=== PATIENT | female | born 1960 | race Caucasian/White ===

== ENCOUNTER 2017-04-09 22:49 | Emergency (ER) | payer OTHER, MEDICAID ==
[2017-04-09 23:11] VITALS: BMI 29.8
--- NOTE | 2017-04-09 23:40 | DR.GENAD ---
HPI - Complaint/Symptoms Chief Complaint:: PT C/O OF BAD CHEST CONGESTION,VOMITING,PASSED OUT TRYING TO EAT, AND HEADACHE. Self Treatment fo Chief Complaint: ZOFRAN 4MG, ALKASELTER - Source History Provided: Patient - Mode of Arrival Mode of Arrival: Wheelchair - Timing Onset of Chief Complaint: 03/26/17 PMH - PMH Past Medical History: Yes Past Medical History: Anxiety, Depression, Hypertension Past Medical History Comment: TACYCARIDA, PANIC ATTACK, FIBRAMYARIA Past Surgical History: Yes Surgical History: Hysterectomy Past Surgical History Comment: SKIN REMOVED - Family History History of Family Medical Conditions: Yes Family Medical History: Cancer, [place], Heart Failure, Hypertension - Social History Does patient currently use any type of tobacco product: Yes Have you used tobacco products in the last 12 months: Yes Type of Tobacco Use: Cigarettes How many years tobacco product used: 30 Does any household member use tobacco: No Alcohol Use: Occasionally Do you use any recreational Drugs:: No Lives With: Family Lives Where: Home - infectious screening In the last 2 months have you had wt loss of >10#?: NO Have you had fever, night sweats or hemotysis?: No Have you traveled outside the country in the last 6 months?: No Isolation: Standard ROS - Review of Systems Eyes: No Symptoms Reported ENTM: No Symptoms Reported Respiratoy: No Symptoms Reported Cardiovascular: No Symptoms Reported Gastrointestinal/Abdominal: No Symptoms Reported Genitourinary: No Symptoms Reported Neurological: No Symptoms Reported Musculoskeletal: No Symptoms Reported Integumentary: No Symptoms Reported Hematologic/Lymphatic: No Symptoms Reported Endocrine: No Symptoms Reported Psychiatric: No Symptoms Reported All Other Systems: Reviewed and Negative PE - Vital Signs Vitals: Temperature 97.5 F Pulse Rate 80 Respiratory Rate 18 Blood Pressure [Right Arm] 115/67 Blood Pressure 120/67 O2 Sat by Pulse Oximetry 97 - General Limitations: No Limitations General Appearance: Alert, In No Apparent Distress - Head Head Exam: Normal Inspection, Atraumatic - Eyes Eye exam: Normal Appearance, PERRL, EOMI - ENT ENT Exam: Normal Exam External Ear Exam: Normal External Inspection TM/Canal Exam: Bilateral Normal Nose Exam: Normal Nose Exam Mouth Exam: Normal Inspection Throat Exam: Normal Inspection - Neck Neck Exam: Normal Inspection, Full ROM - Chest Chest Inspection: Normal Inspection - Respiratory Respiratory Exam: Normal Lung Sounds Bilat Respiratory Exam: Bilateral Clear to Auscultation - Cardiovascular Cardiovascular Exam: Regular Rate, Normal Rhythm - Abdominal Exam Abdominal Exam: Normal Inspection, Normal Bowel Sounds Abdominal Tenderness: negative: RUQ, RLQ, LUQ, LLQ, Epigastrium, Suprapubic, Diffuse, Mild, Moderate, Severe, Other - Extremities Extremities Exam: Normal Inspection, Full ROM, Normal Capillary Refill - Back Back Exam: Normal Inspection, Full ROM - Neurologic Neurological Exam: Alert, Oriented X3, CN II-XII Intact - Psychiatric Psychiatric Exam: Normal Affect, Normal Mood - Skin Skin Exam: Warm, Dry, Intact Course - Education/Counseling Educated On: Treatment, Diagnosis, Prognosis ROR - Labs Reviewed Result Diagrams: 04/09/17 23:50 04/09/17 23:50 Laboratory: WBC 10.0 X10^3/uL (3.6-10.0) 04/09/17 23:50 RBC 4.68 X10^6/uL (3.5-5.4) 04/09/17 23:50 Hgb 13.7 g/dL (12.0-16.0) 04/09/17 23:50 Hct 40.9 % (36.0-47.0) 04/09/17 23:50 MCV 87.4 fL (80.0-100.0) 04/09/17 23:50 MCH 29.3 pg (27.0-34.0) 04/09/17 23:50 MCHC 33.5 g/dL (33.0-35.0) 04/09/17 23:50 RDW 14.4 % (11.6-16.5) 04/09/17 23:50 Plt Count 264 X10^3/uL (150.0-450.0) 04/09/17 23:50 MPV 9.5 fL (7.4-11.0) 04/09/17 23:50 Neut % 58.4 % (42.0-75.0) 04/09/17 23:50 Lymph % 27.1 % (21.0-51.0) 04/09/17 23:50 [place] % 10.2 % (0.0-13.0) 04/09/17 23:50 Eos % 3.3 % (0.9-2.9) H 04/09/17 23:50 Baso % 1.0 % (0.2-1.0) 04/09/17 23:50 Neut # 5.9 x10^3/uL (2.2-4.8) H 04/09/17 23:50 Lymph # 2.7 X10^3/uL (1.3-2.9) 04/09/17 23:50 [place] # 1.0 x10^3/uL (0.3-0.8) H 04/09/17 23:50 Eos # 0.3 x10^3/uL (0.0-0.2) H 04/09/17 23:50 Baso # 0.1 X10^3/uL (0.0-0.1) 04/09/17 23:50 Absolute Nucleated RBC 0.0 /100WBC 04/09/17 23:50 Sodium 137 mmol/L (136-145) 04/09/17 23:50 Corrected Sodium 138 mmol/L (136-145) 04/09/17 23:50 Potassium 3.4 mmol/L (3.5-5.1) L 04/09/17 23:50 Chloride 96 mmol/L (98-107) L 04/09/17 23:50 Carbon Dioxide 34.0 mmol/L (21-32) H 04/09/17 23:50 BUN 10 mg/dL (7-18) 04/09/17 23:50 Creatinine 1.16 mg/dL (0.55-1.02) H 04/09/17 23:50 Est GFR (MDRD) Af Amer > 60 (>60) 04/09/17 23:50 Est GFR (MDRD) Non-Af 51 (>60) L 04/09/17 23:50 Glucose 121 mg/dL (65-99) H 04/09/17 23:50 Calcium 10.5 mg/dL (8.5-10.1) H 04/09/17 23:50 Corrected Calcium TNP 04/09/17 23:50 Total Bilirubin 0.20 mg/dL (0.2-1.0) 04/09/17 23:50 AST 15 Units/L (15-37) 04/09/17 23:50 ALT 21 Units/L (12-78) 04/09/17 23:50 Alkaline Phosphatase 134 Units/L (46-116) H 04/09/17 23:50 C-Reactive Protein 3.90 mg/L (0-3.0) H 04/09/17 23:50 Total Protein 7.3 g/dL (6.4-8.2) 04/09/17 23:50 Albumin 3.7 g/dL (3.4-5.0) 04/09/17 23:50 Globulin 3.6 g/dL (2.5-4.5) 04/09/17 23:50 Albumin/Globulin Ratio 1.0 Ratio (1.1-2.1) L 04/09/17 23:50 - XRAY XRAY Interpreted by: Radiologist (Chest; no acute process) - Diagnosis Discharge Problem: Vaso vagal episode, Cough - Discharge Plan Condition: Stable - Follow ups/Referrals Follow ups/Referrals: JANNET GALLEGOS [Primary Care Provider] - 3 days - Instructions
[2017-04-09] MEDS ORDERED: NS 1000 ML 1,000 ML IV ONE (23:41)
[2017-04-09] MEDS ORDERED: PHENERGAN INJ 25 MG IV ONE (23:42)
[2017-04-09] MEDS ORDERED: NS 1000 ML 1,000 ML ONE (23:44)
[2017-04-09] MEDS ORDERED: PHENERGAN INJ 25 MG ONE (23:45)
[2017-04-10 00:02] LABS: BASOPHILS # (AUTO) 0.1 X10^3/uL (0.0-0.1); EOSINOPHILS # (AUTO) 0.3 x10^3/uL (0.0-0.2); EOSINOPHILS % (AUTO) 3.3 % (0.9-2.9); HEMATOCRIT 40.9 % (36.0-47.0); HEMOGLOBIN 13.7 g/dL (12.0-16.0); LYMPHOCYTES # (AUTO) 2.7 X10^3/uL (1.3-2.9); LYMPHOCYTES % (AUTO) 27.1 % (21.0-51.0); MEAN CORPUSCULAR HEMOGLOBIN 29.3 pg (27.0-34.0); MEAN CORPUSCULAR HGB CONC 33.5 g/dL (33.0-35.0); MEAN CORPUSCULAR VOLUME 87.4 fL (80.0-100.0); MEAN PLATELET VOLUME 9.5 fL (7.4-11.0); MONOCYTES % (AUTO) 10.2 % (0.0-13.0); NEUTROPHILS # (AUTO) 5.9 x10^3/uL (2.2-4.8); NEUTROPHILS % (AUTO) 58.4 % (42.0-75.0); PLATELET COUNT 264 X10^3/uL (150.0-450.0); RED BLOOD COUNT 4.68 X10^6/uL (3.5-5.4); RED CELL DISTRIBUTION WIDTH 14.4 % (11.6-16.5)
[2017-04-10 00:11] LABS: ALANINE AMINOTRANSFERASE 21 Units/L (12-78); ALBUMIN 3.7 g/dL (3.4-5.0); ALKALINE PHOSPHATASE 134 Units/L (46-116); ASPARTATE AMINO TRANSFERASE 15 Units/L (15-37); BLOOD UREA NITROGEN 10 mg/dL (7-18); CALCIUM 10.5 mg/dL (8.5-10.1); CHLORIDE 96 mmol/L (98-107); COR NA(FOR HYPERGLY) 138 mmol/L (136-145); CREATININE 1.16 mg/dL (0.55-1.02); SODIUM 137 mmol/L (136-145); TOTAL PROTEIN 7.3 g/dL (6.4-8.2); eGFR BLACK RACES > 60 (>60); eGFR NON BLACK RACES 51 (>60)
[2017-04-10] MEDS ORDERED: TORADOL 60 MG VIAL IVP ONE (00:55)
--- NOTE | 2017-04-10 00:55 | RAD ---
Chest, two views Indication: Chest tightness with coughing and congestion Comparison: 10/29/2015 Findings: The heart size is normal. No focal consolidation, effusion or pneumothorax is identified. O sseous thorax is unremarkable. Impression: No acute cardiopulmonary abnormality. Reported By:
[2017-04-10] MEDS ORDERED: TORADOL 60 MG VIAL ONE (01:00)
[2017-04-10 01:12] VITALS: BP 117/67
== END 2017-04-10 01:15 | disposition home or self-care (01) ==
LOC: ER 22:49
DX: R55 Syncope and collapse (principal); R05 Cough
CPT/HCPCS: 36415; 71020; 80053; 85025; 86140; 96365; 96374; 96375; 99282; 99283; A4222; J1885; J2550